=== PATIENT | male | born 1955 ===

== ENCOUNTER 2023-05-24 01:20 | Inpatient (IN) | payer MEDICARE, OTHER ==
[~2023-05-24] VITALS: Ht 162.6 cm; Wt 52.2 kg
[2023-05-24] MEDS ORDERED: LIDOCAINE PO (01:49)
[2023-05-24] MEDS ORDERED: PANT40TA49 PO (01:49)
[2023-05-24] MEDS ORDERED: PRAV20TA4 PO (01:49)
[2023-05-24] MEDS ORDERED: SENN8.6T19 PO (01:49)
[2023-05-24] MEDS ORDERED: FINA5TAB11 PO (01:49)
[2023-05-24] MEDS ORDERED: FOLI1TAB27 PO (01:49)
[2023-05-24] MEDS ORDERED: CLOZ100T32 PO ×2 (01:49)
[2023-05-24] MEDS ORDERED: FERR-68 PO (01:49)
[2023-05-24] MEDS ORDERED: TAMS-3 PO (01:49)
[2023-05-24] MEDS ORDERED: BISA10SU61 RC (01:49)
[2023-05-24] MEDS ORDERED: POLY250017 PO (01:49)
[2023-05-24] MEDS ORDERED: PROP10TA10 PO (01:49)
[2023-05-24] MEDS ORDERED: ATRO2DRO4 SL (01:49)
[2023-05-24] MEDS ORDERED: ASPI81TA31 PO (01:49)
[2023-05-24] MEDS ORDERED: levoFLOXacin 750MG/D5W 150 ML IV ONE (02:11)
[2023-05-24] MEDS: levoFLOXacin 750 MG/D5W 150 ML PIGGYBACK IV ONE (02:16)
[2023-05-24 02:17] LABS: BASOPHILS # (AUTO) 0.2 K/UL (0.0-0.2); BASOPHILS % (AUTO) 0.9 % (0.0-2.0); EOSINOPHILS # (AUTO) 0.2 K/uL (0.0-0.7); EOSINOPHILS % (AUTO) 1.1 % (0.0-7.0); HEMATOCRIT 25.5 % (36.7-47.1); HEMOGLOBIN 8.1 g/dL (12.5-16.3); LYMPHOCYTES # (AUTO) 0.8 K/uL (0.8-4.8); MEAN CORPUSCULAR HEMOGLOBIN 28.8 uug (23.8-33.4); MEAN CORPUSCULAR HGB CONC 32 g/dL (32.5-36.3); MONOCYTES # (AUTO) 0.6 K/uL (0.1-1.30); MONOCYTES % (AUTO) 3.5 % (0.0-11.0); NEUTROPHILS # (AUTO) 14.9 K/uL (1.8-8.9); NEUTROPHILS % (AUTO) 89.5 % (38.5-71.5); PLATELET COUNT (AUTO) 292 K/uL (152-348); RED BLOOD CELL COUNT(AUTO) 2.83 MIL/uL (4.06-5.63); RED CELL DISTRIBUTION WIDTH 16.9 % (12.1-16.2); WHITE BLOOD COUNT (AUTO) 16.6 K/uL (3.6-10.2)
[2023-05-24 02:29] LABS: DIFFERENTIAL COMMENT 1
[2023-05-24 02:33] LABS: CALCIUM 8.3 mg/dL (8.5-10.1); CARBON DIOXIDE 26 mmol/L (21-32); CHLORIDE 108 mmol/L (98-107); CREATININE 0.8 mg/dL (0.6-1.3); GLUCOSE 116 mg/dL (74-106); POTASSIUM 3.9 mmol/L (3.5-5.1); SODIUM SERUM 142 mmol/L (136-145); UREA NITROGEN, BLOOD 15 mg/dL (7-18)
[2023-05-24 02:46] LABS: ALANINE AMINOTRANSFERASE 13 U/L (16-63); ALKALINE PHOSPHATASE 108 U/L (50-136); ASPARTATE AMINOTRANSFERASE 25 U/L (15-37); BILIRUBIN,DIRECT 0.1 mg/dL (0.0-0.2); BILIRUBIN,TOTAL 0.3 mg/dL (0.2-1.0); NT-PRO BNP 1626 pg/mL (0-125); TOTAL PROTEIN, SERUM 5.1 g/dL (6.4-8.2)
[2023-05-24 02:49] LABS: ALBUMIN 1.4 g/dL (3.4-5.0)
[2023-05-24 02:53] LABS: LACTIC ACID 2.6 mmol/L (0.4-2.0)
[2023-05-24] MEDS: LORAZEPAM 2 MG/1 ML VIAL IV ONE (03:14)
[2023-05-24] MEDS ORDERED: VANCOMYCIN IV 200 ML ONE (03:42)
[2023-05-24] MEDS: VANCOMYCIN IV 1,000 MG in IV DEXTROSE 5% 250 ML IV ONE (03:53)
[2023-05-24] MEDS: ASPIRIN EC 325 MG TABLET.DR PO STA (04:17)
[2023-05-24] MEDS: IV NORMAL SALINE 500 ML IV ONE (04:26)
[2023-05-24] MEDS ORDERED: ONDANSETRON 4 MG/2 ML VIAL IV PRN (05:00)
[2023-05-24] MEDS ORDERED: hydrALAZINE HCL 20 MG/1 ML VIAL IV PRN (05:00)
[2023-05-24] MEDS ORDERED: ALBUTEROL SULFATE 8 GM HFA.AER.AD IH PRN (05:00)
[2023-05-24] MEDS ORDERED: CEFEPIME HCL 1 G VIAL ONE ×2 (06:06→14:02)
[2023-05-24] MEDS: CEFEPIME HCL 1 G in IV DEXTROSE 5% 50 ML IV SCH (06:14)
[2023-05-24 06:38] LABS: ABG BASE EXCESS -1.7 mmol/L (-2.0-2.0); ABG HCO3 25.1 mmol/L (22.0-26.0); ABG PCO2 52.5 mmHg (35.0-48.0); ABG PH 7.297 (7.340-7.440); ABG PO2 113.6 mmHg (75.0-100.0); ABG SITE RIGHT RADIAL; ABG TOTAL HEMOGLOBIN 10.1 G/dL (14.0-18.0); AaDO2 97.7 mmHg; COHb 0.1 % (0.0-3.9); MetHb 0.1 % (0.0-1.5); O2Hb 97.2 % (94.0-97.0)
[2023-05-24] MEDS ORDERED: ALBUTEROL SULFATE 2.5 MG/3 ML NEBU NEB PRN (08:00)
[2023-05-24] MEDS ORDERED: IPRATROPIUM BROMIDE 0.5 MG/2.5 ML NEBU NEB PRN (08:00)
[2023-05-24] MEDS: FLUTICASONE/VILANTEROL 1 EACH BLST.W.DEV INH SCH (09:00)
[2023-05-24] MEDS ORDERED: ASPIRIN 81 MG TAB.CHEW ONE (09:05)
[2023-05-24] MEDS ORDERED: PANTOPRAZOLE SODIUM 40 MG TABLET.DR PO ONE (09:05)
[2023-05-24] MEDS ORDERED: PROPRANOLOL HCL 10 MG TABLET ONE (09:06)
[2023-05-24] MEDS ORDERED: FINASTERIDE 5 MG TABLET ONE (09:06)
[2023-05-24] MEDS ORDERED: FOLIC ACID 1 MG TABLET ONE (09:06)
[2023-05-24] MEDS: ASPIRIN 81 MG TAB.CHEW PO SCH (09:14)
[2023-05-24] MEDS: FOLIC ACID 1 MG TABLET PO SCH (09:14)
[2023-05-24] MEDS: FINASTERIDE 5 MG TABLET PO SCH (09:15)
[2023-05-24] MEDS: PANTOPRAZOLE SODIUM 40 MG TABLET.DR PO SCH (09:16)
[2023-05-24] MEDS: PROPRANOLOL HCL 10 MG TABLET PO SCH (09:17)
[2023-05-24] MEDS ORDERED: SWABABLE VALVE TRANSFER SET EA MC ONE (13:44)
[2023-05-24] MEDS ORDERED: IOHEXOL 350 100 ML INFUS..BTL ONE (13:44)
[2023-05-24] MEDS ORDERED: IV NORMAL SALINE 250 ML IV ONE (13:44)
[2023-05-24] MEDS: VANCOMYCIN HCL 750 MG in IV DEXTROSE 5% 250 ML IV SCH (15:11)
[2023-05-24 16:01] LABS: BASOPHILS % (AUTO) 0.3 % (0.0-2.0); EOSINOPHILS # (AUTO) 0.1 K/uL (0.0-0.7); EOSINOPHILS % (AUTO) 0.7 % (0.0-7.0); HEMATOCRIT 29.6 % (36.7-47.1); HEMOGLOBIN 9.2 g/dL (12.5-16.3); LYMPHOCYTES # (AUTO) 0.8 K/uL (0.8-4.8); LYMPHOCYTES % (AUTO) 4.5 % (20.5-51.5); MEAN CORPUSCULAR HEMOGLOBIN 28.6 uug (23.8-33.4); MEAN CORPUSCULAR HGB CONC 31 g/dL (32.5-36.3); MEAN CORPUSCULAR VOLUME 92.1 fL (73.0-96.2); MONOCYTES # (AUTO) 0.5 K/uL (0.1-1.30); MONOCYTES % (AUTO) 2.6 % (0.0-11.0); NEUTROPHILS # (AUTO) 16.2 K/uL (1.8-8.9); NEUTROPHILS % (AUTO) 91.9 % (38.5-71.5); PLATELET COUNT (AUTO) 334 K/uL (152-348); RED BLOOD CELL COUNT(AUTO) 3.21 MIL/uL (4.06-5.63); RED CELL DISTRIBUTION WIDTH 17.3 % (12.1-16.2); WHITE BLOOD COUNT (AUTO) 17.6 K/uL (3.6-10.2)
[2023-05-24 16:02] LABS: DIFFERENTIAL COMMENT 1
[2023-05-24] MEDS ORDERED: ENOXAPARIN SODIUM 60 MG/0.6 ML DISP.SYRIN SQ ONE (17:17)
[2023-05-24] MEDS: ENOXAPARIN SODIUM 60 MG/0.6 ML DISP.SYRIN SQ SCH (17:18)
[2023-05-24] MEDS: TAMSULOSIN HCL 0.4 MG CAP.SR.24H PO SCH (21:00)
[2023-05-24] MEDS: ATORVASTATIN 10 MG TABLET PO SCH (21:00)
[2023-05-24] MEDS ORDERED: NOREPINEPHRINE BITARTRATE 32 MG in IV NORMAL SALINE 218 ML IV PRN (22:30)
[2023-05-24] MEDS ORDERED: NEOMY/BACITRA/POLYMYXIN B OINT UD PACKET TP ONE (22:38)
[2023-05-24] MEDS ORDERED: NOREPINEPHRINE BITARTRATE 4 MG/4 ML VIAL IV ONE (22:38)
[2023-05-25] VITALS (66 sets, daily range): BP systolic 55–116; BP diastolic 41–74; TEMP 97.9–98.6; O2SAT 89–100
[2023-05-25] MEDS: NOREPINEPHRINE BITARTRATE 32 MG in IV NORMAL SALINE 218 ML IV PRN (00:42)
[2023-05-25] MEDS ORDERED: IV NS 1000 ML 1,000 ML IV ONE (00:45)
[2023-05-25] MEDS: IV NS 1000 ML 1,000 ML IV ONE (03:37)
[2023-05-25] MEDS: MORPHINE SULFATE 2 MG/1 ML DISP.SYRIN IVP PRN (03:38)
[2023-05-25 05:30] LABS: BASOPHILS % (AUTO) 0.2 % (0.0-2.0); EOSINOPHILS # (AUTO) 0.1 K/uL (0.0-0.7); EOSINOPHILS % (AUTO) 0.5 % (0.0-7.0); HEMATOCRIT 34.7 % (36.7-47.1); HEMOGLOBIN 10.9 g/dL (12.5-16.3); LYMPHOCYTES # (AUTO) 0.8 K/uL (0.8-4.8); LYMPHOCYTES % (AUTO) 5.6 % (20.5-51.5); MEAN CORPUSCULAR HEMOGLOBIN 27.7 uug (23.8-33.4); MEAN CORPUSCULAR HGB CONC 31 g/dL (32.5-36.3); MEAN CORPUSCULAR VOLUME 88.4 fL (73.0-96.2); MONOCYTES # (AUTO) 0.4 K/uL (0.1-1.30); MONOCYTES % (AUTO) 2.7 % (0.0-11.0); NEUTROPHILS # (AUTO) 13.2 K/uL (1.8-8.9); PLATELET COUNT (AUTO) 349 K/uL (152-348); RED BLOOD CELL COUNT(AUTO) 3.93 MIL/uL (4.06-5.63); RED CELL DISTRIBUTION WIDTH 16.8 % (12.1-16.2); WHITE BLOOD COUNT (AUTO) 14.5 K/uL (3.6-10.2)
[2023-05-25 06:00] LABS: DIFFERENTIAL COMMENT 1
[2023-05-25 06:01] LABS: IRON, SERUM 7 ug/dL (50-175)
[2023-05-25 06:05] LABS: ALANINE AMINOTRANSFERASE 20 U/L (16-63); ALKALINE PHOSPHATASE 113 U/L (50-136); ASPARTATE AMINOTRANSFERASE 39 U/L (15-37); BILIRUBIN,TOTAL 0.3 mg/dL (0.2-1.0); CALCIUM 8.8 mg/dL (8.5-10.1); CARBON DIOXIDE 27 mmol/L (21-32); CHLORIDE 113 mmol/L (98-107); CREATININE 0.5 mg/dL (0.6-1.3); GLUCOSE 86 mg/dL (74-106); PHOSPHOROUS 5.3 mg/dL (2.5-4.9); POTASSIUM 4.2 mmol/L (3.5-5.1); SODIUM SERUM 148 mmol/L (136-145); TOTAL PROTEIN, SERUM 5.2 g/dL (6.4-8.2); UREA NITROGEN, BLOOD 8 mg/dL (7-18)
[2023-05-25 06:10] LABS: ABG BASE EXCESS -2.8 mmol/L (-2.0-2.0); ABG HCO3 24.7 mmol/L (22.0-26.0); ABG PCO2 56.2 mmHg (35.0-48.0); ABG PO2 129.6 mmHg (75.0-100.0); ABG SITE RIGHT RADIAL; ABG TOTAL HEMOGLOBIN 10.5 G/dL (14.0-18.0); AaDO2 98.1 mmHg; COHb 0.1 % (0.0-3.9); MetHb 0.3 % (0.0-1.5)
[2023-05-25 06:20] LABS: ALBUMIN 1.4 g/dL (3.4-5.0)
[2023-05-25] MEDS: methylPREDNISolone SOD SUCC 40 MG/ML VIAL IV SCH (08:37)
[2023-05-25] MEDS ORDERED: PROPRANOLOL HCL 10 MG TABLET PO SCH (09:00)
[2023-05-25] MEDS: ALBUTEROL SULFATE 2.5 MG/3 ML NEBU NEB SCH (10:37)
[2023-05-25] MEDS: IPRATROPIUM BROMIDE 0.5 MG/2.5 ML NEBU NEB SCH (10:37)
[2023-05-25] MEDS: FUROSEMIDE 20 MG/2 ML VIAL IV ONE (13:24)
[2023-05-25] MEDS: ENOXAPARIN SODIUM 60 MG/0.6 ML DISP.SYRIN SQ SCH (22:06)
[2023-05-26] VITALS (59 sets, daily range): BP systolic 76–139; BP diastolic 48–96; TEMP 96–97.9; O2SAT 70–100
[2023-05-26 05:11] LABS: LYMPHOCYTES # (AUTO) 0.5 K/uL (0.8-4.8); LYMPHOCYTES % (AUTO) 2.3 % (20.5-51.5); MEAN CORPUSCULAR HEMOGLOBIN 28.2 uug (23.8-33.4); MEAN CORPUSCULAR HGB CONC 32 g/dL (32.5-36.3); MEAN CORPUSCULAR VOLUME 87.4 fL (73.0-96.2); MONOCYTES # (AUTO) 0.4 K/uL (0.1-1.30); MONOCYTES % (AUTO) 1.8 % (0.0-11.0); NEUTROPHILS # (AUTO) 19.8 K/uL (1.8-8.9); NEUTROPHILS % (AUTO) 95.9 % (38.5-71.5); PLATELET COUNT (AUTO) 439 K/uL (152-348); RED BLOOD CELL COUNT(AUTO) 3.54 MIL/uL (4.06-5.63); RED CELL DISTRIBUTION WIDTH 16.4 % (12.1-16.2); WHITE BLOOD COUNT (AUTO) 20.6 K/uL (3.6-10.2)
[2023-05-26 05:28] LABS: PHOSPHOROUS 5.2 mg/dL (2.5-4.9)
[2023-05-26 05:38] LABS: DIFFERENTIAL COMMENT 1
[2023-05-26 06:08] LABS: ABG BASE EXCESS -1.4 mmol/L (-2.0-2.0); ABG HCO3 24.2 mmol/L (22.0-26.0); ABG PCO2 44.4 mmHg (35.0-48.0); ABG PH 7.354 (7.340-7.440); ABG PO2 63.4 mmHg (75.0-100.0); ABG SITE RIGHT RADIAL; ABG TOTAL HEMOGLOBIN 11.1 G/dL (14.0-18.0); AaDO2 91.3 mmHg; COHb 0.3 % (0.0-3.9); MetHb 0.3 % (0.0-1.5); O2Hb 90.6 % (94.0-97.0)
[2023-05-26 11:01] LABS: ABG BASE EXCESS -1.8 mmol/L (-2.0-2.0); ABG HCO3 23.9 mmol/L (22.0-26.0); ABG PCO2 44.8 mmHg (35.0-48.0); ABG PH 7.345 (7.340-7.440); ABG TOTAL HEMOGLOBIN 10.4 G/dL (14.0-18.0); AaDO2 94.5 mmHg; COHb 0.2 % (0.0-3.9); MetHb 0.1 % (0.0-1.5); O2Hb 93.7 % (94.0-97.0)
[2023-05-26 11:46] LABS: CALCIUM 8.4 mg/dL (8.5-10.1); CARBON DIOXIDE 27 mmol/L (21-32); CHLORIDE 114 mmol/L (98-107); CREATININE 0.6 mg/dL (0.6-1.3); GLUCOSE 92 mg/dL (74-106); PHOSPHOROUS 4.4 mg/dL (2.5-4.9); POTASSIUM 3.8 mmol/L (3.5-5.1); SODIUM SERUM 146 mmol/L (136-145); UREA NITROGEN, BLOOD 15 mg/dL (7-18); VANCOMYCIN,TROUGH 12.1 ug/mL (10.0-20.0)
[2023-05-26] MEDS: VANCOMYCIN HCL 750 MG in IV DEXTROSE 5% 250 ML IV SCH (12:19)
[2023-05-26] MEDS: ACETAMINOPHEN 325 MG TABLET PO PRN (17:50)
[2023-05-27] VITALS (58 sets, daily range): BP systolic 86–115; BP diastolic 53–75; TEMP 97.4–98.5; O2SAT 81–100
[2023-05-27 05:15] LABS: BASOPHILS % (AUTO) 0.1 % (0.0-2.0); HEMATOCRIT 30.1 % (36.7-47.1); HEMOGLOBIN 9.7 g/dL (12.5-16.3); LYMPHOCYTES # (AUTO) 0.5 K/uL (0.8-4.8); LYMPHOCYTES % (AUTO) 2.6 % (20.5-51.5); MEAN CORPUSCULAR HEMOGLOBIN 28.2 uug (23.8-33.4); MEAN CORPUSCULAR HGB CONC 32 g/dL (32.5-36.3); MEAN CORPUSCULAR VOLUME 87.8 fL (73.0-96.2); MONOCYTES # (AUTO) 0.3 K/uL (0.1-1.30); MONOCYTES % (AUTO) 1.8 % (0.0-11.0); NEUTROPHILS # (AUTO) 17.6 K/uL (1.8-8.9); NEUTROPHILS % (AUTO) 95.5 % (38.5-71.5); PLATELET COUNT (AUTO) 333 K/uL (152-348); RED BLOOD CELL COUNT(AUTO) 3.43 MIL/uL (4.06-5.63); RED CELL DISTRIBUTION WIDTH 16.8 % (12.1-16.2); WHITE BLOOD COUNT (AUTO) 18.4 K/uL (3.6-10.2)
[2023-05-27 05:20] LABS: DIFFERENTIAL COMMENT 1
[2023-05-27 05:27] LABS: CALCIUM 8.5 mg/dL (8.5-10.1); CREATININE 0.7 mg/dL (0.6-1.3); MAGNESIUM 2.3 mg/dL (1.8-2.4); PHOSPHOROUS 3.9 mg/dL (2.5-4.9); POTASSIUM 4.1 mmol/L (3.5-5.1)
[2023-05-27 06:00] LABS: ABG HCO3 28.2 mmol/L (22.0-26.0); ABG PCO2 58.3 mmHg (35.0-48.0); ABG PH 7.303 (7.340-7.440); ABG PO2 96.9 mmHg (75.0-100.0); ABG SITE LEFT RADIAL; ABG TOTAL HEMOGLOBIN 10.9 G/dL (14.0-18.0); AaDO2 96.6 mmHg; COHb 0.3 % (0.0-3.9); MetHb 0.2 % (0.0-1.5); O2Hb 96.6 % (94.0-97.0)
[2023-05-27] MEDS: PANTOPRAZOLE ORAL SUSPENSION 40 MG SUSPDR.PKT PO SCH (18:52)
[2023-05-27] MEDS: CLOZAPINE 100 MG TABLET PO SCH (20:38)
[2023-05-27] MEDS: ENOXAPARIN SODIUM 60 MG/0.6 ML DISP.SYRIN SQ SCH (20:49)
[2023-05-28] VITALS (46 sets, daily range): BP systolic 79–110; BP diastolic 49–64; TEMP 96.7–98.2; O2SAT 91–100
[2023-05-28 05:23] LABS: BASOPHILS % (AUTO) 0.1 % (0.0-2.0); HEMATOCRIT 29.6 % (36.7-47.1); HEMOGLOBIN 9.5 g/dL (12.5-16.3); LYMPHOCYTES # (AUTO) 0.3 K/uL (0.8-4.8); MEAN CORPUSCULAR HEMOGLOBIN 28.4 uug (23.8-33.4); MEAN CORPUSCULAR HGB CONC 32 g/dL (32.5-36.3); MEAN CORPUSCULAR VOLUME 88.7 fL (73.0-96.2); MONOCYTES # (AUTO) 0.3 K/uL (0.1-1.30); MONOCYTES % (AUTO) 1.8 % (0.0-11.0); NEUTROPHILS # (AUTO) 15.4 K/uL (1.8-8.9); NEUTROPHILS % (AUTO) 96.1 % (38.5-71.5); PLATELET COUNT (AUTO) 236 K/uL (152-348); RED BLOOD CELL COUNT(AUTO) 3.34 MIL/uL (4.06-5.63); RED CELL DISTRIBUTION WIDTH 16.8 % (12.1-16.2)
[2023-05-28 05:40] LABS: CREATININE 0.7 mg/dL (0.6-1.3); MAGNESIUM 2.5 mg/dL (1.8-2.4); PHOSPHOROUS 3.7 mg/dL (2.5-4.9); POTASSIUM 4.2 mmol/L (3.5-5.1)
[2023-05-28 06:00] LABS: DIFFERENTIAL COMMENT 1
[2023-05-28 06:15] LABS: ABG BASE EXCESS 1.4 mmol/L (-2.0-2.0); ABG HCO3 29.8 mmol/L (22.0-26.0); ABG PCO2 69.3 mmHg (35.0-48.0); ABG PH 7.251 (7.340-7.440); ABG PO2 83.9 mmHg (75.0-100.0); ABG SITE LEFT RADIAL; ABG TOTAL HEMOGLOBIN 10.4 G/dL (14.0-18.0); AaDO2 94.3 mmHg; COHb 0.5 % (0.0-3.9); MetHb 0.3 % (0.0-1.5); O2Hb 94.3 % (94.0-97.0)
[2023-05-28] MEDS: FERROUS SULFATE 325 MG TABEC PO SCH (09:06)
[2023-05-28] MEDS: CLOZAPINE 100 MG TABLET PO SCH (09:07)
[2023-05-28] MEDS: IV 1/2NS 1000 ML 1,000 ML IV SCH (09:13)
[2023-05-28] MEDS: VANCOMYCIN IV 1,000 MG in IV DEXTROSE 5% 250 ML IV SCH (20:59)
[2023-05-29] VITALS (79 sets, daily range): BP systolic 77–157; BP diastolic 46–106; TEMP 96.8–98; O2SAT 49–100
[2023-05-29 05:16] LABS: BASOPHILS % (AUTO) 0.1 % (0.0-2.0); HEMATOCRIT 33.5 % (36.7-47.1); HEMOGLOBIN 10.6 g/dL (12.5-16.3); LYMPHOCYTES # (AUTO) 0.4 K/uL (0.8-4.8); LYMPHOCYTES % (AUTO) 2.1 % (20.5-51.5); MEAN CORPUSCULAR HEMOGLOBIN 28.2 uug (23.8-33.4); MEAN CORPUSCULAR HGB CONC 32 g/dL (32.5-36.3); MEAN CORPUSCULAR VOLUME 89.3 fL (73.0-96.2); MONOCYTES # (AUTO) 0.5 K/uL (0.1-1.30); MONOCYTES % (AUTO) 2.8 % (0.0-11.0); NEUTROPHILS # (AUTO) 16.2 K/uL (1.8-8.9); PLATELET COUNT (AUTO) 218 K/uL (152-348); RED BLOOD CELL COUNT(AUTO) 3.75 MIL/uL (4.06-5.63)
[2023-05-29 05:30] LABS: DIFFERENTIAL COMMENT 1
[2023-05-29 05:37] LABS: CALCIUM 9.3 mg/dL (8.5-10.1); CREATININE 0.7 mg/dL (0.6-1.3); MAGNESIUM 2.6 mg/dL (1.8-2.4); PHOSPHOROUS 3.8 mg/dL (2.5-4.9); POTASSIUM 4.6 mmol/L (3.5-5.1)
[2023-05-29 06:26] LABS: ABG BASE EXCESS 0.3 mmol/L (-2.0-2.0); ABG HCO3 31.1 mmol/L (22.0-26.0); ABG PCO2 88.1 mmHg (35.0-48.0); ABG PH 7.165 (7.340-7.440); ABG PO2 107.8 mmHg (75.0-100.0); ABG SITE RIGHT RADIAL; AaDO2 96.2 mmHg; COHb 0.7 % (0.0-3.9); MetHb 0.3 % (0.0-1.5); O2Hb 96.7 % (94.0-97.0)
[2023-05-29] MEDS: MIDODRINE HCL 2.5 MG TABLET PO SCH (07:45)
[2023-05-29] MEDS: NOREPINEPHRINE BITARTRATE 8 MG in IV NORMAL SALINE 242 ML IV PRN (07:50)
[2023-05-29] MEDS: PROPOFOL 100 ML IV PRN (08:09)
[2023-05-29 10:44] LABS: ABG BASE EXCESS 1.2 mmol/L (-2.0-2.0); ABG HCO3 28.5 mmol/L (22.0-26.0); ABG PCO2 58.5 mmHg (35.0-48.0); ABG PH 7.306 (7.340-7.440); ABG PO2 170.3 mmHg (75.0-100.0); ABG SITE LEFT RADIAL; ABG TOTAL HEMOGLOBIN 11.4 G/dL (14.0-18.0); COHb 0.7 % (0.0-3.9); MetHb 0.2 % (0.0-1.5); O2Hb 98.6 % (94.0-97.0); VT, ABG 500 mL
[2023-05-29] MEDS: FUROSEMIDE 40 MG/4 ML VIAL IV ONE (10:54)
[2023-05-29] MEDS ORDERED: MEROPENEM 500MG/NS 50ML PB ***ER PYXIS ONLY IV ONE ×2 (21:56→21:57)
[2023-05-29] MEDS: MEROPENEM 500 MG in IV NORMAL SALINE 50 ML IV SCH (22:00)
[2023-05-30] VITALS (50 sets, daily range): BP systolic 92–126; BP diastolic 38–84; TEMP 94–98.4; O2SAT 88–100
[2023-05-30 05:50] LABS: BASOPHILS % (AUTO) 0.1 % (0.0-2.0); HEMATOCRIT 26.3 % (36.7-47.1); HEMOGLOBIN 8.9 g/dL (12.5-16.3); LYMPHOCYTES # (AUTO) 0.3 K/uL (0.8-4.8); LYMPHOCYTES % (AUTO) 1.8 % (20.5-51.5); MEAN CORPUSCULAR HEMOGLOBIN 29.1 uug (23.8-33.4); MEAN CORPUSCULAR HGB CONC 34 g/dL (32.5-36.3); MEAN CORPUSCULAR VOLUME 85.7 fL (73.0-96.2); MONOCYTES # (AUTO) 0.2 K/uL (0.1-1.30); MONOCYTES % (AUTO) 1.3 % (0.0-11.0); NEUTROPHILS # (AUTO) 15.5 K/uL (1.8-8.9); NEUTROPHILS % (AUTO) 96.8 % (38.5-71.5); PLATELET COUNT (AUTO) 203 K/uL (152-348); RED BLOOD CELL COUNT(AUTO) 3.07 MIL/uL (4.06-5.63); RED CELL DISTRIBUTION WIDTH 16.7 % (12.1-16.2)
[2023-05-30 05:58] LABS: DIFFERENTIAL COMMENT 1
[2023-05-30 06:01] LABS: CALCIUM 8.5 mg/dL (8.5-10.1); CREATININE 0.9 mg/dL (0.6-1.3); MAGNESIUM 2.3 mg/dL (1.8-2.4); PHOSPHOROUS 2.3 mg/dL (2.5-4.9); POTASSIUM 3.8 mmol/L (3.5-5.1)
[2023-05-30 06:08] LABS: ABG BASE EXCESS 3.8 mmol/L (-2.0-2.0); ABG HCO3 28.9 mmol/L (22.0-26.0); ABG PCO2 46.5 mmHg (35.0-48.0); ABG PH 7.412 (7.340-7.440); ABG PO2 86.6 mmHg (75.0-100.0); ABG SITE RIGHT RADIAL; ABG TOTAL HEMOGLOBIN 9.7 G/dL (14.0-18.0); AaDO2 96.6 mmHg; COHb 0.1 % (0.0-3.9); MetHb 0.3 % (0.0-1.5); O2Hb 96.1 % (94.0-97.0); VT, ABG 500 mL
[2023-05-30 10:04] LABS: ABG BASE EXCESS 4.5 mmol/L (-2.0-2.0); ABG HCO3 29.5 mmol/L (22.0-26.0); ABG PCO2 46.6 mmHg (35.0-48.0); ABG PO2 63.6 mmHg (75.0-100.0); ABG SITE RIGHT RADIAL; ABG TOTAL HEMOGLOBIN 9.2 G/dL (14.0-18.0); AaDO2 92.5 mmHg; COHb 0.1 % (0.0-3.9); MetHb 0.4 % (0.0-1.5); O2Hb 91.6 % (94.0-97.0); VT, ABG 400 mL
[2023-05-30] MEDS: NEUTRA PHOS PACKET PO ONE (11:38)
[2023-05-30] MEDS: GLUCERNA 1.2 1000ML LIQUID GT PRN (12:05)
[2023-05-30] MEDS ORDERED: MEROPENEM 500 MG in IV NORMAL SALINE 50 ML IV SCH (14:00)
[2023-05-30] MEDS: MEROPENEM 0.5 G in IV NORMAL SALINE 50 ML IV SCH (14:15)
[2023-05-31] VITALS (70 sets, daily range): BP systolic 66–131; BP diastolic 42–77; TEMP 97–99.9; O2SAT 91–100
[2023-05-31 05:21] LABS: BASOPHILS # (AUTO) 0.1 K/UL (0.0-0.2); BASOPHILS % (AUTO) 0.5 % (0.0-2.0); HEMATOCRIT 28.7 % (36.7-47.1); HEMOGLOBIN 9.6 g/dL (12.5-16.3); LYMPHOCYTES # (AUTO) 0.2 K/uL (0.8-4.8); MEAN CORPUSCULAR HEMOGLOBIN 28.7 uug (23.8-33.4); MEAN CORPUSCULAR HGB CONC 33 g/dL (32.5-36.3); MEAN CORPUSCULAR VOLUME 85.8 fL (73.0-96.2); MONOCYTES # (AUTO) 0.4 K/uL (0.1-1.30); MONOCYTES % (AUTO) 1.8 % (0.0-11.0); NEUTROPHILS # (AUTO) 20.1 K/uL (1.8-8.9); NEUTROPHILS % (AUTO) 96.7 % (38.5-71.5); PLATELET COUNT (AUTO) 201 K/uL (152-348); RED BLOOD CELL COUNT(AUTO) 3.34 MIL/uL (4.06-5.63); RED CELL DISTRIBUTION WIDTH 16.6 % (12.1-16.2); WHITE BLOOD COUNT (AUTO) 20.8 K/uL (3.6-10.2)
[2023-05-31 05:27] LABS: DIFFERENTIAL COMMENT 1
[2023-05-31 05:40] LABS: CALCIUM 8.5 mg/dL (8.5-10.1); CREATININE 1.3 mg/dL (0.6-1.3); MAGNESIUM 2.5 mg/dL (1.8-2.4); PHOSPHOROUS 3.3 mg/dL (2.5-4.9); POTASSIUM 4.4 mmol/L (3.5-5.1)
[2023-05-31 06:06] LABS: ABG BASE EXCESS 3.9 mmol/L (-2.0-2.0); ABG HCO3 29.6 mmol/L (22.0-26.0); ABG PCO2 49.5 mmHg (35.0-48.0); ABG PH 7.394 (7.340-7.440); ABG PO2 78.7 mmHg (75.0-100.0); ABG SITE LEFT FEMORAL; ABG TOTAL HEMOGLOBIN 11.2 G/dL (14.0-18.0); AaDO2 95.4 mmHg; COHb 0.3 % (0.0-3.9); MetHb 0.4 % (0.0-1.5); O2Hb 94.7 % (94.0-97.0); VT, ABG 400 mL
[2023-05-31] MEDS: MIDODRINE HCL 5 MG TABLET PO SCH (13:44)
[2023-05-31] MEDS ORDERED: MIDODRINE HCL 2.5 MG TABLET PO SCH (14:00)
[2023-05-31] MEDS: METOCLOPRAMIDE HCL 10 MG/2 ML VIAL IV SCH (15:10)
[2023-05-31] MEDS: MEROPENEM 1 G in IV NORMAL SALINE 100 ML IV SCH (17:36)
[2023-05-31] MEDS: IV NORMAL SALINE 250 ML IV PRN (22:35)
[2023-06-01] VITALS (71 sets, daily range): BP systolic 83–139; BP diastolic 45–65; TEMP 94.5–98.2; O2SAT 90–100
[2023-06-01 05:01] LABS: BASOPHILS # (AUTO) 0.2 K/UL (0.0-0.2); BASOPHILS % (AUTO) 0.9 % (0.0-2.0); HEMATOCRIT 29.1 % (36.7-47.1); HEMOGLOBIN 9.5 g/dL (12.5-16.3); LYMPHOCYTES # (AUTO) 0.3 K/uL (0.8-4.8); LYMPHOCYTES % (AUTO) 1.3 % (20.5-51.5); MEAN CORPUSCULAR HGB CONC 33 g/dL (32.5-36.3); MEAN CORPUSCULAR VOLUME 85.9 fL (73.0-96.2); MONOCYTES # (AUTO) 0.5 K/uL (0.1-1.30); MONOCYTES % (AUTO) 2.2 % (0.0-11.0); NEUTROPHILS % (AUTO) 95.6 % (38.5-71.5); PLATELET COUNT (AUTO) 159 K/uL (152-348); RED BLOOD CELL COUNT(AUTO) 3.39 MIL/uL (4.06-5.63); RED CELL DISTRIBUTION WIDTH 16.6 % (12.1-16.2); WHITE BLOOD COUNT (AUTO) 21.9 K/uL (3.6-10.2)
[2023-06-01 05:30] LABS: CALCIUM 8.5 mg/dL (8.5-10.1); CREATININE 1.1 mg/dL (0.6-1.3); MAGNESIUM 2.5 mg/dL (1.8-2.4); PHOSPHOROUS 3.8 mg/dL (2.5-4.9); POTASSIUM 4.8 mmol/L (3.5-5.1)
[2023-06-01 05:40] LABS: DIFFERENTIAL COMMENT 1
[2023-06-01 05:59] LABS: ABG BASE EXCESS 4.5 mmol/L (-2.0-2.0); ABG HCO3 31.7 mmol/L (22.0-26.0); ABG PCO2 62.1 mmHg (35.0-48.0); ABG PH 7.326 (7.340-7.440); ABG PO2 66.7 mmHg (75.0-100.0); ABG SITE UC; ABG TOTAL HEMOGLOBIN 10.4 G/dL (14.0-18.0); AaDO2 91.3 mmHg; COHb 0.5 % (0.0-3.9); MetHb 0.3 % (0.0-1.5); O2Hb 91.2 % (94.0-97.0); VT, ABG 400 mL
[2023-06-01] MEDS: VANCOMYCIN IV 1,000 MG in IV DEXTROSE 5% 250 ML IV ONE (12:35)
[2023-06-01] MEDS: VALACYCLOVIR HCL 500 MG TABLET PO SCH (21:12)
[2023-06-01] MEDS: HYDROCORTISONE 1% CREAM 30 GM TUBE TP SCH (21:30)
[2023-06-01] MEDS: ENOXAPARIN SODIUM 40 MG/0.4 ML DISP.SYRIN SQ SCH (21:42)
[2023-06-02] VITALS (24 sets, daily range): BP systolic 120–150; BP diastolic 45–71; TEMP 97.6–98.6; O2SAT 91–100
[2023-06-02 04:51] LABS: BASOPHILS # (AUTO) 0.3 K/UL (0.0-0.2); BASOPHILS % (AUTO) 1.4 % (0.0-2.0); EOSINOPHILS % (AUTO) 0.1 % (0.0-7.0); HEMATOCRIT 26.6 % (36.7-47.1); HEMOGLOBIN 8.6 g/dL (12.5-16.3); LYMPHOCYTES # (AUTO) 0.2 K/uL (0.8-4.8); LYMPHOCYTES % (AUTO) 1.2 % (20.5-51.5); MEAN CORPUSCULAR HGB CONC 32 g/dL (32.5-36.3); MEAN CORPUSCULAR VOLUME 86.2 fL (73.0-96.2); MONOCYTES # (AUTO) 0.2 K/uL (0.1-1.30); MONOCYTES % (AUTO) 1.1 % (0.0-11.0); NEUTROPHILS # (AUTO) 20.1 K/uL (1.8-8.9); NEUTROPHILS % (AUTO) 96.2 % (38.5-71.5); PLATELET COUNT (AUTO) 140 K/uL (152-348); RED BLOOD CELL COUNT(AUTO) 3.08 MIL/uL (4.06-5.63); RED CELL DISTRIBUTION WIDTH 16.6 % (12.1-16.2); WHITE BLOOD COUNT (AUTO) 20.9 K/uL (3.6-10.2)
[2023-06-02 05:28] LABS: DIFFERENTIAL COMMENT 1
[2023-06-02 05:41] LABS: CALCIUM 8.2 mg/dL (8.5-10.1); CREATININE 0.9 mg/dL (0.6-1.3); MAGNESIUM 2.6 mg/dL (1.8-2.4); PHOSPHOROUS 3.3 mg/dL (2.5-4.9); POTASSIUM 5.1 mmol/L (3.5-5.1)
[2023-06-02 06:07] LABS: ABG HCO3 33.2 mmol/L (22.0-26.0); ABG PCO2 63.9 mmHg (35.0-48.0); ABG PH 7.333 (7.340-7.440); ABG PO2 74.7 mmHg (75.0-100.0); ABG SITE LEFT RADIAL; ABG TOTAL HEMOGLOBIN 9.3 G/dL (14.0-18.0); AaDO2 93.6 mmHg; COHb 0.8 % (0.0-3.9); MetHb 0.6 % (0.0-1.5); O2Hb 92.8 % (94.0-97.0); VT, ABG 400 mL
[2023-06-02] MEDS: methylPREDNISolone SOD SUCC 40 MG/ML VIAL IV SCH (09:00)
[2023-06-02] MEDS: ALBUMIN HUMAN 25% 100 ML IV SCH (09:16)
[2023-06-02] MEDS: FUROSEMIDE 40 MG/4 ML VIAL IV SCH (09:18)
[2023-06-02] MEDS: MEROPENEM 1 G in IV NORMAL SALINE 100 ML IV SCH (15:03)
[2023-06-02] MEDS: REMEDY ESSENTIAL ZINC PASTE 113 GM TOP SCH (20:53)
[2023-06-03] VITALS (23 sets, daily range): BP systolic 107–144; BP diastolic 37–59; TEMP 95.5–98.4; O2SAT 82–98
[2023-06-03 05:10] LABS: BASOPHILS % (AUTO) 0.1 % (0.0-2.0); EOSINOPHILS # (AUTO) 0.1 K/uL (0.0-0.7); EOSINOPHILS % (AUTO) 0.3 % (0.0-7.0); HEMOGLOBIN 7.9 g/dL (12.5-16.3); LYMPHOCYTES # (AUTO) 0.3 K/uL (0.8-4.8); LYMPHOCYTES % (AUTO) 1.5 % (20.5-51.5); MEAN CORPUSCULAR HEMOGLOBIN 28.3 uug (23.8-33.4); MEAN CORPUSCULAR HGB CONC 33 g/dL (32.5-36.3); MEAN CORPUSCULAR VOLUME 85.9 fL (73.0-96.2); MONOCYTES # (AUTO) 0.5 K/uL (0.1-1.30); NEUTROPHILS # (AUTO) 22.2 K/uL (1.8-8.9); NEUTROPHILS % (AUTO) 96.1 % (38.5-71.5); PLATELET COUNT (AUTO) 149 K/uL (152-348); RED CELL DISTRIBUTION WIDTH 16.2 % (12.1-16.2); WHITE BLOOD COUNT (AUTO) 23.1 K/uL (3.6-10.2)
[2023-06-03 05:28] LABS: DIFFERENTIAL COMMENT 1
[2023-06-03 05:37] LABS: ALANINE AMINOTRANSFERASE 18 U/L (16-63); ALBUMIN 2.9 g/dL (3.4-5.0); ALKALINE PHOSPHATASE 85 U/L (50-136); ASPARTATE AMINOTRANSFERASE 15 U/L (15-37); BILIRUBIN,TOTAL 0.5 mg/dL (0.2-1.0); CALCIUM 8.9 mg/dL (8.5-10.1); CHLORIDE 106 mmol/L (98-107); CREATININE 0.8 mg/dL (0.6-1.3); GLUCOSE 155 mg/dL (74-106); MAGNESIUM 2.5 mg/dL (1.8-2.4); PHOSPHOROUS 2.8 mg/dL (2.5-4.9); POTASSIUM 3.8 mmol/L (3.5-5.1); SODIUM SERUM 147 mmol/L (136-145); UREA NITROGEN, BLOOD 30 mg/dL (7-18); VANCOMYCIN,RANDOM 15.1 ug/mL (20.0-30.0)
[2023-06-03 05:42] LABS: CHOLESTEROL 99 mg/dL (<200); HDL CHOLESTEROL 35 mg/dL (40-60); TRIGLYCERIDES 306 MG/DL (30-150)
[2023-06-03 06:04] LABS: CARBON DIOXIDE 40 mmol/L (21-32)
[2023-06-03 06:26] LABS: TRIGLYCERIDES < 15 MG/DL (30-150)
[2023-06-03] MEDS: FUROSEMIDE 40 MG/4 ML VIAL IV ONE (09:00)
[2023-06-03] MEDS: ACETAzolamide 250 MG TABLET PO ONE (09:22)
[2023-06-03 16:17] LABS: PROSTATE SPECIFIC ANTIGEN 2.84 ng/mL (0.00-4.00)
[2023-06-03] MEDS: PROPOFOL 100 ML IV PRN (23:58)
[2023-06-04] VITALS (24 sets, daily range): BP systolic 98–138; BP diastolic 37–53; TEMP 98.1–98.7; O2SAT 91–98
[2023-06-04 05:03] LABS: BASOPHILS # (AUTO) 0.2 K/UL (0.0-0.2); BASOPHILS % (AUTO) 0.8 % (0.0-2.0); EOSINOPHILS # (AUTO) 0.3 K/uL (0.0-0.7); EOSINOPHILS % (AUTO) 1.6 % (0.0-7.0); HEMATOCRIT 22.8 % (36.7-47.1); LYMPHOCYTES # (AUTO) 0.5 K/uL (0.8-4.8); LYMPHOCYTES % (AUTO) 2.6 % (20.5-51.5); MEAN CORPUSCULAR HEMOGLOBIN 27.8 uug (23.8-33.4); MEAN CORPUSCULAR HGB CONC 32 g/dL (32.5-36.3); MEAN CORPUSCULAR VOLUME 86.8 fL (73.0-96.2); MONOCYTES # (AUTO) 0.4 K/uL (0.1-1.30); MONOCYTES % (AUTO) 2.1 % (0.0-11.0); NEUTROPHILS # (AUTO) 19.3 K/uL (1.8-8.9); NEUTROPHILS % (AUTO) 92.9 % (38.5-71.5); PLATELET COUNT (AUTO) 135 K/uL (152-348); RED BLOOD CELL COUNT(AUTO) 2.63 MIL/uL (4.06-5.63); RED CELL DISTRIBUTION WIDTH 16.7 % (12.1-16.2); WHITE BLOOD COUNT (AUTO) 20.7 K/uL (3.6-10.2)
[2023-06-04 05:32] LABS: CALCIUM 8.4 mg/dL (8.5-10.1); CREATININE 0.8 mg/dL (0.6-1.3); MAGNESIUM 2.4 mg/dL (1.8-2.4); PHOSPHOROUS 2.7 mg/dL (2.5-4.9); POTASSIUM 3.8 mmol/L (3.5-5.1)
[2023-06-04 05:44] LABS: DIFFERENTIAL COMMENT 1; HEMOGLOBIN 7.3 g/dL (12.5-16.3)
[2023-06-04 05:54] LABS: ABG BASE EXCESS 13.1 mmol/L (-2.0-2.0); ABG HCO3 39.6 mmol/L (22.0-26.0); ABG PCO2 65.7 mmHg (35.0-48.0); ABG PH 7.398 (7.340-7.440); ABG PO2 91.6 mmHg (75.0-100.0); ABG SITE LEFT RADIAL; ABG TOTAL HEMOGLOBIN 8.1 G/dL (14.0-18.0); AaDO2 96.7 mmHg; MetHb 0.4 % (0.0-1.5); O2Hb 95.5 % (94.0-97.0); VT, ABG 400 mL
[2023-06-04] MEDS: FUROSEMIDE 40 MG/4 ML VIAL IV SCH (08:40)
[2023-06-04] MEDS: ACETAzolamide 250 MG TABLET PO SCH (09:15)
[2023-06-05] VITALS (78 sets, daily range): BP systolic 90–146; BP diastolic 43–69; TEMP 97.1–98.2; O2SAT 89–100
[2023-06-05 04:59] LABS: BASOPHILS # (AUTO) 0.1 K/UL (0.0-0.2); BASOPHILS % (AUTO) 0.3 % (0.0-2.0); EOSINOPHILS # (AUTO) 0.3 K/uL (0.0-0.7); EOSINOPHILS % (AUTO) 1.3 % (0.0-7.0); HEMATOCRIT 21.1 % (36.7-47.1); LYMPHOCYTES # (AUTO) 0.4 K/uL (0.8-4.8); LYMPHOCYTES % (AUTO) 1.9 % (20.5-51.5); MEAN CORPUSCULAR HEMOGLOBIN 33.9 uug (23.8-33.4); MEAN CORPUSCULAR HGB CONC 38 g/dL (32.5-36.3); MEAN CORPUSCULAR VOLUME 88.9 fL (73.0-96.2); MONOCYTES # (AUTO) 0.5 K/uL (0.1-1.30); MONOCYTES % (AUTO) 2.4 % (0.0-11.0); NEUTROPHILS # (AUTO) 21.3 K/uL (1.8-8.9); NEUTROPHILS % (AUTO) 94.1 % (38.5-71.5); PLATELET COUNT (AUTO) 130 K/uL (152-348); RED CELL DISTRIBUTION WIDTH 16.8 % (12.1-16.2); WHITE BLOOD COUNT (AUTO) 22.7 K/uL (3.6-10.2)
[2023-06-05 05:31] LABS: DIFFERENTIAL COMMENT 1; RED BLOOD CELL COUNT(AUTO) 2.37 MIL/uL (4.06-5.63)
[2023-06-05 05:34] LABS: CALCIUM 6.8 mg/dL (8.5-10.1); MAGNESIUM 2.2 mg/dL (1.8-2.4); PHOSPHOROUS 2.8 mg/dL (2.5-4.9); POTASSIUM 3.8 mmol/L (3.5-5.1)
[2023-06-05 05:42] LABS: ABG BASE EXCESS 11.4 mmol/L (-2.0-2.0); ABG HCO3 38.8 mmol/L (22.0-26.0); ABG PCO2 67.7 mmHg (35.0-48.0); ABG PH 7.376 (7.340-7.440); ABG PO2 56.2 mmHg (75.0-100.0); ABG SITE LEFT RADIAL; ABG TOTAL HEMOGLOBIN 10.8 G/dL (14.0-18.0); AaDO2 87.4 mmHg; COHb 1.2 % (0.0-3.9); MetHb 0.2 % (0.0-1.5); O2Hb 87.5 % (94.0-97.0); VT, ABG 400 mL
[2023-06-05 05:54] LABS: CREATININE 0.7 mg/dL (0.6-1.3)
[2023-06-05] MEDS: FUROSEMIDE 40 MG/4 ML VIAL IV SCH (09:12)
[2023-06-05] MEDS: FLUCONAZOLE 100 MG TABLET GT SCH (16:56)
[2023-06-06] VITALS (61 sets, daily range): BP systolic 0–147; BP diastolic 0–71; TEMP 97.7–100.1; O2SAT 0–98
[2023-06-06 08:33] LABS: ABG BASE EXCESS 11.6 mmol/L (-2.0-2.0); ABG PCO2 62.4 mmHg (35.0-48.0); ABG PH 7.403 (7.340-7.440); ABG SITE RIGHT RADIAL; ABG TOTAL HEMOGLOBIN 9.3 G/dL (14.0-18.0); AaDO2 77.3 mmHg; COHb 1.4 % (0.0-3.9); MetHb 0.3 % (0.0-1.5); O2Hb 76.4 % (94.0-97.0); VT, ABG 400 mL
[2023-06-06] MEDS: methylPREDNISolone SOD SUCC 40 MG/ML VIAL IV SCH (11:18)
[2023-06-06 11:26] LABS: BASOPHILS # (AUTO) 0.2 K/UL (0.0-0.2); BASOPHILS % (AUTO) 0.4 % (0.0-2.0); EOSINOPHILS # (AUTO) 1.2 K/uL (0.0-0.7); EOSINOPHILS % (AUTO) 1.8 % (0.0-7.0); HEMATOCRIT 25.9 % (36.7-47.1); LYMPHOCYTES # (AUTO) 0.6 K/uL (0.8-4.8); LYMPHOCYTES % (AUTO) 0.9 % (20.5-51.5); MEAN CORPUSCULAR HEMOGLOBIN 27.7 uug (23.8-33.4); MEAN CORPUSCULAR HGB CONC 31 g/dL (32.5-36.3); MEAN CORPUSCULAR VOLUME 89.3 fL (73.0-96.2); MONOCYTES # (AUTO) 0.4 K/uL (0.1-1.30); MONOCYTES % (AUTO) 0.6 % (0.0-11.0); NEUTROPHILS # (AUTO) 62.9 K/uL (1.8-8.9); NEUTROPHILS % (AUTO) 96.3 % (38.5-71.5); PLATELET COUNT (AUTO) 234 K/uL (152-348); RED CELL DISTRIBUTION WIDTH 17.2 % (12.1-16.2)
[2023-06-06 11:34] LABS: CALCIUM 7.9 mg/dL (8.5-10.1); CREATININE 0.9 mg/dL (0.6-1.3); MAGNESIUM 1.9 mg/dL (1.8-2.4); PHOSPHOROUS 2.6 mg/dL (2.5-4.9); POTASSIUM 3.1 mmol/L (3.5-5.1)
[2023-06-06 11:36] LABS: DIFFERENTIAL COMMENT 1
[2023-06-06 11:37] LABS: WHITE BLOOD COUNT (AUTO) 65.4 K/uL (3.6-10.2)
[2023-06-06 13:54] LABS: EOSINOPHILS % (MANUAL) 1 % (0-8); LYMPHOCYTES % (MANUAL) 3 % (20-40); MONOCYTES % (MANUAL) 6 % (2-10); NEUTROPHILS % (MANUAL) 90 % (42-75)
[2023-06-06 13:56] LABS: PLATELET ESTIMATE ADEQUATE
[2023-06-06] MEDS ORDERED: POTASSIUM CHLORIDE 20 MEQ POWDER PACKET GT ONE (14:00)
[2023-06-06] MEDS ORDERED: MEROPENEM 500 MG in IV NORMAL SALINE 50 ML IV SCH (16:00)
[2023-06-06] MEDS: MORPHINE SULFATE PF IV DRIP 100 MG in IV DEXTROSE 5% 96 ML IV PRN (17:49)
== END 2023-06-06 19:05 | DRG 870 ==
LOC: ER 01:23 → TRANSITION 04:30 → CCU 22:33
PROVIDERS: ADMIT Internal Medicine; ATTEND Nurse Practitioner Acute Care
PROC: 5A09457 Assistance with Respiratory Ventilation, 24-96 Consecutive Hours, Continuous Positive Airway Pressure (ICD-10-PCS; principal; 2023-05-24)
PROC: 05HA33Z Insertion of Infusion Device into Left Brachial Vein, Percutaneous Approach (ICD-10-PCS; 2023-05-25)
PROC: 0BH17EZ Insertion of Endotracheal Airway into Trachea, Via Natural or Artificial Opening (ICD-10-PCS; 2023-05-29)
PROC: 5A1955Z Respiratory Ventilation, Greater than 96 Consecutive Hours (ICD-10-PCS; 2023-05-29)
DX: A41.9 Sepsis, unspecified organism (principal); E43 Unspecified severe protein-calorie malnutrition; J15.69 Pneumonia due to other Gram-negative bacteria; I21.A1 Myocardial infarction type 2; R65.21 Severe sepsis with septic shock; J80 Acute respiratory distress syndrome; J69.0 Pneumonitis due to inhalation of food and vomit; G93.41 Metabolic encephalopathy; Z51.5 Encounter for palliative care; I50.31 Acute diastolic (congestive) heart failure; Z68.1 Body mass index [BMI] 19.9 or less, adult; E87.0 Hyperosmolality and hypernatremia; F20.0 Paranoid schizophrenia; J44.0 Chronic obstructive pulmonary disease with (acute) lower respiratory infection; J98.11 Atelectasis; N17.9 Acute kidney failure, unspecified; R09.02 Hypoxemia; K21.00 Gastro-esophageal reflux disease with esophagitis, without bleeding; E78.5 Hyperlipidemia, unspecified; Z88.0 Allergy status to penicillin; J98.2 Interstitial emphysema; L25.9 Unspecified contact dermatitis, unspecified cause; D50.9 Iron deficiency anemia, unspecified; R26.9 Unspecified abnormalities of gait and mobility; E88.09 Other disorders of plasma-protein metabolism, not elsewhere classified; E11.9 Type 2 diabetes mellitus without complications; I11.0 Hypertensive heart disease with heart failure; R79.1 Abnormal coagulation profile; N40.0 Benign prostatic hyperplasia without lower urinary tract symptoms; R13.10 Dysphagia, unspecified
CPT/HCPCS: 36415; 36600; 70030-TC; 71045; 71275; 82378; 82803; 83550; 83605; 83735; 84100; 84153; 84478; 84484; 85025; 85730; 86140; 87040; 93005; 93307; 94003; 94640; 94660; 94760; A4606; A4663; A6209; C1758; G0378; J0692; J1650; J1940; J1956; J2060; J2185; J2270; J2274; J2765; J2920; J3370; J3490; J3590; J7040; J7050; J8499; P9047; Q9967